=== PATIENT | female | born 1990 | race Caucasian/White ===

== ENCOUNTER 2025-06-03 14:33 | Emergency (ER) | payer OTHER ==
[~2025-06-03] VITALS: Ht 175.3 cm; Wt 52.2 kg
[2025-06-03 15:06] LABS: PLATELET COUNT (AUTO) 261 K/uL (179-408); RED BLOOD CELL COUNT(AUTO) 4.45 MIL/uL (3.63-4.92); RED CELL DISTRIBUTION WIDTH 13.9 % (12.3-17.7); WHITE BLOOD COUNT (AUTO) 19.3 K/uL (3.8-11.8)
[2025-06-03 15:17] LABS: CREATININE 0.8 mg/dL (0.6-1.3); SODIUM SERUM 136 mmol/L (136-145); UREA NITROGEN, BLOOD 14 mg/dL (7-18)
[2025-06-03 15:20] LABS: ETHANOL 10.0 MG/DL (0-10)
[2025-06-03] MEDS: IV NORMAL SALINE 1000 ML BAG IV ONE (15:21)
[2025-06-03 15:23] LABS: ASPARTATE AMINOTRANSFERASE 19 U/L (15-37); TOTAL PROTEIN, SERUM 8.2 g/dL (6.4-8.2)
[2025-06-03 15:48] LABS: *BILIRUBIN,URIN NEGATIVE (NEGATIVE); *CLARITY,URINE CLEAR (CLEAR); *COLOR,URINE YELLOW (YELLOW); *KETONES,URINE NEGATIVE (NEGATIVE); *PROTEIN,URINE TRACE (NEGATIVE); *UROBILINOGEN,URINE 1.0 E.U./dl (NORMAL); LEUKOCYTE ESTERASE ,URINE 2+ (NEGATIVE); NITRITE, URINE NEGATIVE (NEGATIVE); UGLUCOSE NEGATIVE (NEGATIVE)
[2025-06-03 15:49] LABS: *BLOOD, URINE TRACE (NEGATIVE)
[2025-06-03 15:50] LABS: SQUAMOUS EPITHELIAL CELL,UR FEW /HPF (NONE SEEN)
[2025-06-03 15:51] LABS: *URINE HCG, QUAL NEGATIVE (NEGATIVE); URINE AMORPHOUS PHOSPHATES MODERATE /HPF
[2025-06-03 16:05] LABS: *AMPHETAMINE, URINE POSITIVE (NEGATIVE); *BARBITURATE, URINE NEGATIVE (NEGATIVE); *BENZODIAZEPINE, URINE NEGATIVE (NEGATIVE); *CANNABINOID, URINE POSITIVE (NEGATIVE); *COCCAINE, URINE NEGATIVE (NEGATIVE); *OPIATE, URINE POSITIVE (NEGATIVE); *PHENCYCLIDINE SCREEN,URINE NEGATIVE (NEGATIVE); FENTANYL, URINE POSITIVE (NEGATIVE)
[2025-06-03] MEDS ORDERED: CEFTRIAXONE /D5W 50ML IVPB **ER PYXIS IV ONE (16:18)
[2025-06-03] MEDS: CEFTRIAXONE 1 G in IV DEXTROSE 5% 50 ML IV ONE (16:18)
[2025-06-03] MEDS: ACETAMINOPHEN 500 MG TABLET PO ONE (16:30)
[2025-06-03] MEDS ORDERED: ACETAMINOPHEN 500 MG TABLET ONE (16:32)
[2025-06-03 17:36] LABS: HIV-1/2 ANTIBODY NON REACTIVE (NONREACTIVE)
[2025-06-03] MEDS ORDERED: DOXY100C5 PO (18:04)
[2025-06-03] MEDS ORDERED: NALO4SPR BNOSTRILS (18:04)
[2025-06-03] MEDS ORDERED: NITR100C6 PO (18:04)
[2025-06-04 09:43] VITALS: BP 133/86; TEMP 97.8; O2SAT 99
[2025-06-04 21:07] LABS: *CHLAMYDIA NAA Negative (Negative); *TRIC.VAG. NAA Positive (Negative)
[2025-06-05 05:08] LABS: *GC NAA Positive (Negative)
== END 2025-06-04 09:11 | disposition home or self-care (01) ==
LOC: ER 14:33 → EDBD 14:33 → ER 06-04 09:11
DX: F19.11 Other psychoactive substance abuse, in remission (principal); R00.0 Tachycardia, unspecified; R30.0 Dysuria; R41.0 Disorientation, unspecified; R51.9 Headache, unspecified; R53.1 Weakness; D72.829 Elevated white blood cell count, unspecified; F11.10 Opioid abuse, uncomplicated; F12.10 Cannabis abuse, uncomplicated; F15.10 Other stimulant abuse, uncomplicated; J45.909 Unspecified asthma, uncomplicated; Z59.00 Homelessness unspecified; Z85.028 Personal history of other malignant neoplasm of stomach
CPT/HCPCS: 80076; 80048; 81001; 82140; 82962; 87806; 84703; 84443; 85025; 87086; 36415; 71045; 70450; 93005; 99285; 96361; 96374; 87491; 80299; 80320; 80307; 86592; 98960; J0696; J7040; A4606; A4663; A9150; C1758; G0480